=== PATIENT | female | born 1990 | race Caucasian/White ===

== ENCOUNTER → 2021-05-28 | Day surgery (SDC) | payer OTHER ==
[~2021-05-28] VITALS: Ht 165.1 cm; Wt 136.1 kg
[~2021-05-28] MED LIST: DEPO-SHOT IJ; MOTRIN600 MG PO; PERCOCET 5-3251 EACH PO; PRINIVIL10 MG PO; ZYRTEC10 M3 PO
[2021-05-28 12:51] LABS: BASOPHIL 0.4 % (0-2); EOSINOPHIL 2.1 % (0-5); HCT 36.4 % (37.0-47.0); HGB 11.2 g/dl (12.5-16.0); MCH 23.2 pg (25.0-31.0); MCHC 30.8 g/dL (32.0-36.0); MCV 75.5 fL (78.0-100.0); MONOCYTE 5.3 % (0-12); MPV 9.7 fL (6.0-9.5); NEUTROPHIL 59.9 % (41-80); NRBC 0; PLT 449 K/uL (150-400); RBC 4.82 M/uL (4.20-5.40); RDW 17.8 % (11.5-14.0); WBC 11.3 K/uL (4.0-10.5)
[2021-05-28 13:43] LABS: BUN/CREAT RATIO (CALC) 18.8 RATIO; CREATININE 0.64 mg/dL (0.51-0.95)
== END | disposition home or self-care (01) ==
LOC: FAS 08:00
PROVIDERS: Anesthesiology; Oral & Maxillofacial Surgery
DX: K02.9 Dental caries, unspecified (principal); I10 Essential (primary) hypertension; M45.9 Ankylosing spondylitis of unspecified sites in spine; E66.01 Morbid (severe) obesity due to excess calories; J45.909 Unspecified asthma, uncomplicated; F17.290 Nicotine dependence, other tobacco product, uncomplicated; F41.9 Anxiety disorder, unspecified; Z68.42 Body mass index [BMI] 45.0-49.9, adult; Z79.899 Other long term (current) drug therapy
CPT/HCPCS: 36415; 80048; 84703; 85025; 93005; J1100; J1170; J1885; J2250; J2405; J2704; J2710; J3010; J7120